=== PATIENT | female | born 1990 | race Two or more races ===

== ENCOUNTER 2024-10-15 17:11 | Emergency (ER) | payer BC, SELFPAY ==
[2024-10-15 17:12] VITALS: BMI 29.9
[2024-10-15 17:31] VITALS: BP 111/72; PULSE 83; RESP 20; TEMP 37.1; O2SAT 95
--- NOTE | 2024-10-15 17:33 | PD.EDRME ---
Rapid Medical Screening Exam RME Arrival date/time: 10/15/24 17:11 34-year-old female presents to the emergency department with complaints of chest pain, cough after URI. I have greeted and performed a focused initial assessment of this patient. Initial appropriate labs ordered at this time. A comprehensive ED assessment and evaluation of the patient and analysis of all test and completion of medical decision making process will be conducted by additional ED provider. Chief Complaint: Chest Pain Time Seen by Provider: 10/15/24 17:33 Vital signs: Vital Signs Temperature 98.7 F 10/15/24 17:31 Pulse Rate 83 10/15/24 17:31 Respiratory Rate 20 10/15/24 17:31 Blood Pressure 111/72 10/15/24 17:31 Pulse Oximetry (%) 95 10/15/24 17:31 Oxygen Delivery Method Room Air 10/15/24 17:31
--- NOTE | 2024-10-15 17:34 | XR_ITS ---
Examination: PA lateral chest 2 views TECHNIQUE: Upright PA lateral chest 2 views Exam date and time: 2024 1748 hours Comparison July 19, 2019 INDICATIONS: Coughing beginning 3 days ago. FINDINGS: Early pneumonia right base Normal heart size Left lung clear Impression : Early pneumonia right base
[2024-10-15] MEDS: predniSONE 20 MG TABLET 60 MG PO (18:37)
--- NOTE | 2024-10-15 18:38 | PC.NURSE ---
RT CALLED AND MADE AWARE THAT PT IS IN ROOM R3 AND READY FOR BREATHING TREATMENT. PER RT, WILL COME SEE PT SOON.
--- NOTE | 2024-10-15 18:42 | PD.EDURI ---
Upper Respiratory Inf. RME/HPI General Chief Complaint: Chest Pain Stated Complaint: CHEST PAIN, SOB Time Seen by Provider: 10/15/24 17:33 Arrival date/time: 10/15/24 17:11 RME / HPI RME / HPI Narrative: 10/15/24 17:11 34-year-old female presents to the emergency department with complaints of chest pain, cough after URI. I have greeted and performed a focused initial assessment of this patient. Initial appropriate labs ordered at this time. A comprehensive ED assessment and evaluation of the patient and analysis of all test and completion of medical decision making process will be conducted by additional ED provider. This section includes all my notes and documentations, including HPI, PE, and ED course. César Zacarias MD HPI: 34-year-old female here with about a week history of worsening cough, productive cough, purulent sputum, and dyspnea. No other complaints. ROS: All negative except as documented in HPI. Physical Exam: General: Alert and oriented. Hacking cough noted. Eyes: Conjunctivae and lids clear. ENT: No nasal congestion. Neck: Supple. Heart: RRR. Lungs: No respiratory distress. Moderately decreased air movement with diffuse rhonchi. Abdomen: Soft and nontender. Normal bowel sounds. No distension. No rebound or guarding. Back: No CVA tenderness. Skin: Warm and dry. Neuro: Alert and oriented X 3. I reviewed all diagnostic test results. My interpretation of the chest x-ray is infiltrates. COVID/influenza negative. At this point, diagnoses include pneumonia. Treatment here included prednisone and Zithromax and DuoNeb. Significant improvement noted. Recommended a trial of outpatient treatment. Based on my best medical judgment, made decision no further evaluation or treatment indicated at this time. Patient understands and agrees to the discharge instructions customized and printed, see below. Discharge instructions from Dr. Zacarias: --No physical exertion for 3 days to help rest the lungs. ?No smoking or exposure to smoking or pets or dust or cold or humidity. --Zithromax to kill the germs causing the pneumonia. --Prednisone to help decrease the swelling in the airways. --Albuterol 2 puffs every 4-6 hours today and tomorrow to help keep the airways open. Then as needed for cough or shortness of breath. --See a private doctor next week for recheck. --Seek immediate medical care with worsening or with any concerns. César Zacarias MD Related Data Home Medications ?Medication ?Instructions ?Recorded ?Confirmed prenat.vits,hellen,[id number] 1 tab PO QDAY 08/07/20 04/18/23 Previous Rx's ?Medication ?Instructions ?Recorded albuterol sulfate 90 mcg/actuation 2 puff inhalation Q6H PRN 10/15/24 aerosol inhaler shortness of breath or wheezing #8.5 grams azithromycin 500 mg tablet 500 mg PO QDAY 3 days #3 tabs 10/15/24 (Zithromax TRI-MARIBEL) prednisone 20 mg tablet 40 mg PO DAILY 3 days #6 tabs 10/15/24 Allergies Allergy/AdvReac Type Severity Reaction Status Date / Time bismuth subsalicylate (From Allergy Hives Verified 10/15/24 17:12 Pepto-Bismol) Course Quality Measures none Orders Category Date Time Status Bedside COVID-19 Antigen Test NOW Care 10/15/24 17:34 Completed Bedside Influenza A&B Antigen Test NOW Care 10/15/24 17:34 Completed XR chest 2V Stat Exams 10/15/24 17:34 Completed Albuterol/Ipratr Rt Lilliana [Duoneb Rt Lilliana] Med 10/15/24 17:34 Discontinued 3 ml INH X1 ONE Azithromycin Po [Zithromax PO] Med 10/15/24 19:00 Discontinued 500 mg PO X1 ONE predniSONE Med 10/15/24 17:34 Discontinued 60 mg PO X1 ONE Vital Signs Vital signs: Vital Signs Temperature 98.7 F 10/15/24 17:31 Pulse Rate 83 10/15/24 17:31 Respiratory Rate 20 10/15/24 17:31 Blood Pressure 111/72 10/15/24 17:31 Pulse Oximetry (%) 95 10/15/24 17:31 Oxygen Delivery Method Room Air 10/15/24 17:31 Upper Respiratory Infection Patient data External records reviewed:: [facility] previous records Clinical information provided by:: patient Social determinants that could affect healthcare access:: none Patient has the following chronic illnesses:: None How is presenting disease/condition affected by chronic disease/condition?: no chronic disease Evaluation data The following diagnostics were reviewed and interpreted by me:: lab results and radiology exam(s) Lab and/or radiology exams considered but not ordered:: None Interpretation Summary: Pneumonia Medications / Prescriptions Medications or Prescriptions considered but not ordered:: None Medication administrations:: Medication Administration History Discontinued Medications Albuterol/Ipratropium (Albuterol/Ipratropium (Duoneb) Rt Lilliana 3 Ml Nebu) 3 ml INH X1 ONE Stop: 10/15/24 17:35 Last Admin: 10/15/24 19:37 Dose: 3 ml Documented By: PATTIE Azithromycin (Azithromycin 250 Mg Tablet) 500 mg PO X1 ONE Stop: 10/15/24 19:01 Last Admin: 10/15/24 19:21 Dose: 500 mg Documented By: Prednisone (Prednisone 20 Mg Tablet) 60 mg PO X1 ONE Stop: 10/15/24 17:35 Last Admin: 10/15/24 18:37 Dose: 60 mg Documented By: GRAHAM Zithromax and prednisone and DuoNeb Consultations Consultation(s) initiated? (list below): No Diagnosis Upper Respiratory Differential Diagnosis: upper respiratory infection, viral infection, bronchitis, influenza and other (COVID/pneumonia) Most likely diagnosis given after review of the tests above:: Pneumonia Admission Indicated Admission indicated?: not indicated Explain why admission is indicated or not indicated:: With significant improvement, there was no indication for admission. Admission Request Was there a request for admission?: No Disposition Plan Disposition Plan: Discharge Discharge Attestation Discharge Attestation: The patient and all family members were given an opportunity to ask questions and understood the discharge instructions. Discharge instructions specifically effects, indications for sooner follow up or return to the emergency department, and the expected course of current diagnosis. Patient condition: Stable Discharge Plan Plan Patient Disposition: HOME (Self Care) Prescriptions/Referrals Prescriptions/Med Rec: New prednisone 20 mg tablet 40 mg PO DAILY 3 Days Qty: 6 0RF Taper: Prednisone Taper 20 mg DAILY for 2 Days and 0 Hour 10 mg DAILY for 2 Days and 0 Hour 5 mg DAILY for 7 Days and 0 Hour albuterol sulfate 90 mcg/actuation HFA aerosol inhaler 2 puff inhalation Q6H PRN (Reason: shortness of breath or wheezing) Qty: 8.5 0RF azithromycin [Zithromax TRI-MARIBEL] 500 mg tablet 500 mg PO QDAY 3 Days Qty: 3 0RF No Action prenat.vits,hellen,[id number] Tablet 1 tab PO QDAY Referrals: Fabiola Shelton NP [Primary Care Provider] - In 1 week Problem List Clinical Impression: Pneumonia Patient/Caregiver Discharge Instructions Discharge Activity: activity as tolerated Education Materials: ED Pneumonia (Adult) Additional Instructions: Discharge instructions from Dr. Zacarias: --No physical exertion for 3 days to help rest the lungs. ?No smoking or exposure to smoking or pets or dust or cold or humidity. --Zithromax to kill the germs causing the pneumonia. --Prednisone to help decrease the swelling in the airways. --Albuterol 2 puffs every 4-6 hours today and tomorrow to help keep the airways open. Then as needed for cough or shortness of breath. --See a private doctor next week for recheck. --Seek immediate medical care with worsening or with any concerns. Print Language: Irish Stand Alone Forms: [facility] Award Info., Patient Portal Info Letter
[2024-10-15] MEDS: AZITHROMYCIN 250 MG TABLET 500 MG PO (19:21)
[2024-10-15 19:37] VITALS: PULSE 91; RESP 20; O2SAT 97
[2024-10-15] MEDS: ALBUTEROL/IPRATROPIUM (Duoneb) RT SOL 3 ML NEBU INH (19:37)
== END 2024-10-15 20:03 | disposition home or self-care (01) ==
PROVIDERS: Emergency Provider Emergency Medicine; PCP Nurse Practitioner Family
DX: J18.9 Pneumonia, unspecified organism (principal)
CPT/HCPCS: 71046; 87400; 87811; 94640; 99283; A9270; J7512